=== PATIENT | male | born 1935 | race Caucasian/White ===

== ENCOUNTER 2017-02-01 15:19 | Emergency (ER) | payer MEDICARE, BC ==
[2017-02-01 15:49] LABS: BASOPHILS 0.1 % (0-2); EOSINOPHILS 0.6 % (0-7); HEMATOCRIT 48.5 % (42.0-54.0); HEMOGLOBIN 16.2 g/dL (13.5-17.5); IMMATURE GRANULOCYTES 0.1 % (0-5); LYMPHOCYTES 38.9 % (15-50); MCH 31.7 pg (26.0-34.0); MCHC 33.4 g/dL (31.0-37.0); MCV 94.9 fL (80.0-100.0); MEAN PLATELET VOLUME 10.9 fL (7.4-10.4); MONOCYTES 7.8 % (2-11); NEUTROPHILS 52.5 % (40-80); PLATELET COUNT 274 10x3/uL (130-400); RBC 5.11 10x6/uL (4.20-6.10); RDW 13.3 % (11.5-14.5); WBC 7.9 10x3/uL (4.8-10.8)
[2017-02-01 15:59] LABS: APTT 42.5 SECONDS (22.8-39.4); INR 3.43 (0.85-1.17); PROTIME 33.8 SECONDS (11.6-15.0)
== END 2017-02-01 17:10 | disposition home or self-care (01) ==
LOC: D.ER 15:19
PROVIDERS: Emergency Medicine
DX: R04.0 Epistaxis (principal); F17.200 Nicotine dependence, unspecified, uncomplicated; Z86.73 Personal history of transient ischemic attack (TIA), and cerebral infarction without residual deficits; I48.91 Unspecified atrial fibrillation

== ENCOUNTER 2017-02-02 13:35 | Emergency (ER) | payer MEDICARE, BC | END 2017-02-02 17:40 | disposition home or self-care (01) | LOC: D.ER 13:35 | DX: R04.0 Epistaxis (principal) ==

== ENCOUNTER → 2017-08-06 11:50 | Outpatient (CLI) | payer MEDICARE, BC | END | disposition home or self-care (01) | LOC: D.CT 11:50 | DX: T14.90XA Injury, unspecified, initial encounter (principal); X58.XXXA Exposure to other specified factors, initial encounter ==

== ENCOUNTER 2017-09-29 09:15 | Outpatient (CLI) | payer MEDICARE, BC ==
[~2017-09-29] VITALS: Ht 175.3 cm; Wt 73.6 kg
--- NOTE | ~2017-09-29 | OP ---
PATIENT NAME: BREONNA LU MEDICAL RECORD: [id number] :35 LOCATION:D.CAT ADMISSION DATE: SURGEON: TANO BHATT MD DATE OF OPERATION: 09/29/2017 PROCEDURE: DC cardioversion. INDICATION: Atrial fibrillation. PROCEDURE IN DETAIL: IV conscious sedation was performed per anesthesia. Continuous heart rate, O2 saturation, blood pressure monitoring all undertaken, all of which remained stable. He received 1 shock restoring sinus rhythm at 275 joules. OVERALL IMPRESSION: Successful DC cardioversion from atrial fibrillation to sinus rhythm. TRANSINT:[id number] Voice Confirmation ID: [id number] DOCUMENT ID: [id number] TANO BHATT MD at 1642 CC: [id number] DICTATION DATE: 09/29/17 1214 ADVERTISING STRATEGIST: 09/29/17 1318 DEP CLI 09/29/17 [address] [place] [address]
--- NOTE | ~2017-09-29 | HEMODYNAMI ---
PATIENT:BREONNA LU MEDICAL RECORD: [id number] : 35 LOCATION:D.CAT ADMISSION DATE: 09/29/17 Generatedon:09/29/201712:23 Patient name: BREONNA LU Patient #: [id number] SSN: : 1935 Date of study: 09/29/2017 Page: Of Hemodynamic Procedure Report Patient Data Patient Demographics Procedure consent was obtained First Name: BREONNA Gender: Male Last Name: TABITHA : 1935 [facility] Initial: DANUTA Age: 82 year(s) Patient #: [id number] Race: Unknown Additional ID: [id number] Contact details Address: [address] [place] [address] State: [place] City: [place] Zip code: [address] Admission Admission Data Admission Date: 09/29/2017 Admission Time: 9:15 Procedure Procedure Types Cath Procedure Diagnostic Procedure Cardioversion External Procedure Description Procedure Date Procedure Date: 09/29/2017 Procedure Start Time: 12:11 Procedure End Time: 12:14 Procedure Staff Name Function Ryan Lopez MD Performing Physician Liam Multani CRNA Additional personnel Montse Osorio RT Monitor Ilana Crenshaw RT Scrub Ervin Pacheco RN Nurse Procedure Data Cath Procedure Fluoroscopy Diagnostic fluoroscopy Total fluoroscopy Time: 0 time: 0 min min Diagnostic fluoroscopy Total fluoroscopy dose: 0 dose: 0 mGy mGy Contrast Material Contrast Material Type Amount (ml) Isovue 300 0 Estimated blood loss: 0 ml Procedure Complications No complications Procedure Medications Medication Administration Route Dosage Oxygen etCO2 Nasal cannula 6 l/min 0.9% NaCl I.V. 100 ml/hr Refer to Anesthesia Notes for Sedation Medications Hemodynamics Rest Heart Rate: 71 (bpm) Snapshots Pre Cath Intra NCS Post Cath Vital Signs Time Heart Resp SPO2 etCO2 NIBP (mmHg) Rhythm Pain Sedation Rate (ipm) (%) (mmHg) Status Level (bpm) 12:02:28 70 17 100 29.1 150/99(140) NSR 0 (11) 10(A) , No pain 12:06:40 68 19 100 27.7 153/112(123) NSR 0 (11) 10(A) , No pain 12:10:54 61 18 100 29.1 160/111(146) NSR 0 (11) 6(A) , No pain 12:15:00 49 18 100 17.2 126/68(106) NSR 0 (11) 6(A) , No pain 12:18:39 49 17 100 0 120/64(93) NSR 0 (11) 7(A) , No pain Medications Time Medication Route Dose Verified Delivered Reason Notes Effective ness by by 12:01:36 Oxygen etCO2 6 Ryan Mueller Per Nasal l/min John Pacheco RN physician cannula 12:01:46 0.9% NaCl I.V. 100 Ryan Mueller Per ml/hr John Pacheco RN physician 12:02:03 Refer to Ryan Mueller Per Anesthesia John Pacheco RN physician Notes for Sedation Medications Procedure Log Time Note 11:45:18 Ilana MOHAMUD(R) sent for patient. Start room use. 11:55:54 Time tracking: Regular hours (M-F 7:00 - 5:00) 11:55:58 Plan of Care:Hemodynamics will remain stable., Cardiac rhythm will remain stable., Comfort level will be maintained., Respiratory function will remain adequate., Patient/ family verbilizes understanding of procedure., Procedure tolerated without complication., Recovers from procedure without complications.. 11:56:09 Correct patient and procedure confirmed by team. 11:56:23 Patient arrived from Pre/Post Procedure Room to CCL 3. Patient remains on bed/stretcher for procedure. 11:56:38 Signed procedure consent form obtained from patient. 11:56:40 ECG and BP/O2 sat monitors applied to patient. 12:01:20 Vital chart was started 12:01:22 Baseline sample Acquired. 12:01:28 Rhythm: atrial fibrillation 12:01:29 Full Disclosure recording started 12:01:35 H&P Date Dictated: 09/29/2017 Within 30 days and on chart., H&P Addendum completed by physician on day of procedure. (MUST COMPLETE FOR ALL OUTPATIENTS). 12:01:36 Oxygen 6 l/min etCO2 Nasal cannula was administered by Ervin Pacheco RN; Per physician; 12:01:36 Pre-procedure instructions explained to patient. 12:01:37 Pre-op teaching completed and patient verbalized understanding. 12:01:38 Family in waiting room. 12:01:40 Patient NPO since Midnight. 12:01:43 Is the patient allergic to Iodine/contrast media? No. 12:01:44 Was the patient premedicated? No 12:01:46 0.9% NaCl 100 ml/hr I.V. was administered by Ervin Pacheco RN; Per physician; 12:02:03 Refer to Anesthesia Notes for Sedation Medications was administered by Ervin Pacheco RN; Per physician; 12:02:20 Is patient on blood thinner?Yes 12:02:23 ACC The patient was administered the following blood thiners within the last 24 hours: Coumadin 12:02:25 Patient diabetic? Yes. 12:02:26 If diabetic: On Metformin? Yes 12:02:31 If on Metformin: Last Dose? 09/29/2017 12:02:34 Previous problem with sedation/anesthesia? No ? 12:02:36 Snore? Yes 12:02:37 Sleep apnea? No 12:02:38 Deviated septum? No 12:02:39 Opens mouth fully? Yes 12:02:39 Sticks out tongue? Yes 12:02:54 Airway obstruction? No ? 12:03:07 Dentures? Yes in tight 12:03:13 Patient pain scale 0/10 ?. 12:03:25 Lab results completed and on chart. 12:03:30 Alarms reviewed by R. N. 12:03:30 Sharps counted by scrub and verified by R.N. 12:07:12 Liam Multani CRNA present and monitoring patient for TIVA. 12:07:14 Quick combo pads placed on patients chest and back. 12:07:20 Defibrillator synced and charged to 275 Joules. 12:10:05 Physician paged 12:10:06 Physician arrived 12:10:07 --------ALL STOP TIME OUT------ 12:10:07 Final Timeout: patient, procedure, and site verified with staff and physician. All members of the team are in agreement. 12:10:15 Physical assessment completed. ASA score P 2 - A patient with mild systemic disease as per Ryan Lopez MD. 12:10:19 Sedation plan: TIVA Medication:Propofol 12:11:12 Procedure started. 12:13:11 Shock delivered. 12:13:33 Patient cardioverted to sinus rhythm . 12:13:57 Procedure ended.(Physican Out) 12:14:06 Fluoroscopy time 00.00 minutes. 12:14:08 Fluoroscopy dose: 0 mGy 12:14:08 Flurop Dose total: 0 12:14:12 Contrast amount:Isovue 300 0ml. 12:14:14 Sharps counted by scrub and verified by R.N. 12:14:16 Insertion/operative site no bleeding no hematoma. 12:14:18 Post Procedure Pulses reassessed and unchanged 12:14:21 Post procedure rhythm: sinus rhythm 12:14:24 Estimated blood loss: 0 ml 12:14:25 Post procedure instruction explained to patient.Patient verbalizes understanding. 12:14:31 Patient needs reinforcement of post procedure teaching. 12:14:37 Procedure and supply charges have been captured, reviewed, submitted and are correct. 12:14:42 Procedure Complication : No complications 12:14:43 Vital chart was stopped 12:14:44 See physician's report for complete and final results. 12:14:47 Report given to Pre/Post Procedure Room. 12:14:50 Patient transfered to Pre/Post Procedure Room with Stretcher. 12:14:53 Procedure ended. 12:14:53 Full Disclosure recording stopped 12:14:58 End room use (Document Last) Signature Audit Jenner Stage Time Signature Unsigned Intra-Procedure 09/29/2017 Montse Osorio 12:23:01 PM RT(R) Signatures Monitor : Montse Osorio RT Signature : Date : Time : [facility] [address] [place] [address]
[2017-09-29] MEDS ORDERED: PACERONE200 MG PO (09:37)
[2017-09-29] MEDS ORDERED: SYNTHROID75 MCG PO (09:37)
[2017-09-29] MEDS ORDERED: COUMADIN3 MG PO (09:38)
[2017-09-29] MEDS ORDERED: COUMADIN1 MG PO (09:39)
[2017-09-29] MEDS ORDERED: ZOCOR80 MG PO (09:40)
[2017-09-29 09:58] VITALS: BP 136/77; Ht 175.3 cm; Wt 73.6 kg
[2017-09-29 10:20] LABS: BASOPHILS 0.3 % (0-2); EOSINOPHILS 0.4 % (0-7); HEMATOCRIT 42.8 % (42.0-54.0); HEMOGLOBIN 14.4 g/dL (13.5-17.5); IMMATURE GRANULOCYTES 0.4 % (0-5); LYMPHOCYTES 19.5 % (15-50); MCH 31.7 pg (26.0-34.0); MCHC 33.6 g/dL (31.0-37.0); MCV 94.3 fL (80.0-100.0); MEAN PLATELET VOLUME 10.5 fL (7.4-10.4); MONOCYTES 6.9 % (2-11); NEUTROPHILS 72.5 % (40-80); PLATELET COUNT 280 10x3/uL (130-400); RBC 4.54 10x6/uL (4.20-6.10); RDW 14.4 % (11.5-14.5); WBC 7.6 10x3/uL (4.8-10.8)
[2017-09-29 10:28] LABS: ANION GAP 11.4 mmol/L (8-16); CALCIUM 8.1 mg/dL (8.5-10.1); CREATININE - SERUM 1.2 mg/dL (0.6-1.3); POTASSIUM - SERUM 4.4 mmol/L (3.5-5.1)
[2017-09-29 10:57] LABS: INR 3.71 (0.85-1.17); PROTIME 35.4 SECONDS (11.6-15.0)
== END 2017-09-29 14:00 | disposition home or self-care (01) ==
LOC: D.CATH 09:15
PROVIDERS: Internal Medicine Interventional Cardiology
DX: I48.91 Unspecified atrial fibrillation (principal)

== ENCOUNTER 2017-11-27 16:16 | Emergency (ER) | payer MEDICARE, BC ==
[~2017-11-27] VITALS: Ht 175.3 cm; Wt 70.5 kg
[~2017-11-27 16:16] MED LIST: COUMADIN1 MG PO; COUMADIN3 MG PO; PACERONE200 MG PO; SYNTHROID75 MCG PO; ZOCOR80 MG PO
[2017-11-27 16:23] VITALS: Ht 175.3 cm; Wt 70.5 kg
[2017-11-27 17:13] LABS: BASOPHILS 0.3 % (0-2); EOSINOPHILS 0.1 % (0-7); HEMATOCRIT 44.1 % (42.0-54.0); HEMOGLOBIN 14.8 g/dL (13.5-17.5); IMMATURE GRANULOCYTES 0.1 % (0-5); LYMPHOCYTES 20.7 % (15-50); MCH 31.6 pg (26.0-34.0); MCHC 33.6 g/dL (31.0-37.0); MEAN PLATELET VOLUME 10.9 fL (7.4-10.4); MONOCYTES 10.2 % (2-11); NEUTROPHILS 68.6 % (40-80); PLATELET COUNT 248 10x3/uL (130-400); RBC 4.69 10x6/uL (4.20-6.10); RDW 13.8 % (11.5-14.5); WBC 7.6 10x3/uL (4.8-10.8)
[2017-11-27 17:41] LABS: ALBUMIN 3.1 g/dL (3.4-5.0); ANION GAP 13.4 mmol/L (8-16); BILIRUBIN - TOTAL 0.44 mg/dL (0.2-1.3); CALCIUM 8.4 mg/dL (8.5-10.1); CARBON DIOXIDE 25.9 mmol/L (21.0-32.0); CREATININE - SERUM 1.1 mg/dL (0.6-1.3); POTASSIUM - SERUM 4.3 mmol/L (3.5-5.1); PROTEIN - SERUM 6.3 g/dL (6.4-8.2)
[2017-11-27 17:50] LABS: THYROID STIMULATING HORMONE 1.56 uIU/mL (0.36-3.74)
[2017-11-27] MEDS ORDERED: CHRONULAC30 ML PO (20:39)
[2017-11-27 21:35] VITALS: BP 1358/88
== END 2017-11-27 21:36 | disposition home or self-care (01) ==
LOC: D.ER 16:16
PROVIDERS: Family Medicine
DX: K59.00 Constipation, unspecified (principal); R10.32 Left lower quadrant pain; R33.9 Retention of urine, unspecified; Z86.73 Personal history of transient ischemic attack (TIA), and cerebral infarction without residual deficits; E11.9 Type 2 diabetes mellitus without complications; E07.9 Disorder of thyroid, unspecified; Z85.828 Personal history of other malignant neoplasm of skin

== ENCOUNTER 2017-11-28 08:58 | Outpatient (CLI) | payer MEDICARE, BC ==
[~2017-11-28] VITALS: Ht 175.3 cm; Wt 70.5 kg
[~2017-11-28 08:58] MED LIST changes: +CHRONULAC30 ML PO
[2017-11-28 10:28] VITALS: BP 137/94; Ht 175.3 cm; Wt 70.5 kg
== END 2017-11-28 13:04 | disposition home or self-care (01) ==
LOC: D.OPS 08:58 → D.ER 08:58 → EDSTATUS 09:41 → D.OPS 13:04
DX: K56.41 Fecal impaction (principal); R33.9 Retention of urine, unspecified; Z01.812 Encounter for preprocedural laboratory examination

== ENCOUNTER → 2017-12-29 09:57 | Outpatient (CLI) | payer MEDICARE, BC ==
[2017-11-28 10:28] VITALS: BMI 22.9
== END | disposition home or self-care (01) ==
LOC: D.RAD 09:57
DX: K57.32 Diverticulitis of large intestine without perforation or abscess without bleeding (principal); Z86.010 Personal history of colon polyps; Z80.0 Family history of malignant neoplasm of digestive organs; K59.00 Constipation, unspecified